=== PATIENT | female | born 1990 | race Caucasian/White ===

== ENCOUNTER 2024-07-14 16:34 | Emergency (ER) | payer OTHER ==
[~2024-07-14] VITALS: Ht 170.2 cm; Wt 91.0 kg
[2024-07-14 16:37] VITALS: PULSE 84; O2SAT 99
[2024-07-14 16:40] VITALS: BP 139/92; RESP 16; TEMP 36.9; O2SAT 99
== END 2024-07-14 18:25 | disposition home or self-care (01) ==
LOC: ER 16:34
DX: Z48.00 Encounter for change or removal of nonsurgical wound dressing (principal)
CPT/HCPCS: 99281